=== PATIENT | male | born 1995 | race Caucasian/White ===

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

== ENCOUNTER 2017-03-23 15:25 | Emergency (ER) | payer MEDICAID ==
[~2017-03-23] VITALS: Ht 180.3 cm; Wt 68.4 kg
[~2017-03-23 15:25] MED LIST changes: -ALBU8.5H3 INH; +ALBU8.5H8 INH; -LAMO150T PO; +LAMO150T2 PO
[2017-03-23 17:37] LABS: MICROSCOPIC INDICATED
[2017-03-23 18:04] LABS: CULTURE INDICATED? NO
[2017-03-23] MEDS ORDERED: CEFTRIAXONE 250 MG ONE (18:26)
[2017-03-23] MEDS ORDERED: AZITHROMYCIN 500 MG TABLET ONE (18:26)
[2017-03-23] MEDS ORDERED: LIDOCAINE 1%, 10ML ONE (18:26)
[2017-03-23] MEDS ORDERED: AZITHROMYCIN 500 MG TABLET PO ONE (18:30)
[2017-03-23] MEDS ORDERED: CEFTRIAXONE 250 MG IM ONE (18:30)
[2017-03-23 19:08] VITALS: BP 122/61
== END 2017-03-23 19:18 | disposition home or self-care (01) ==
LOC: SUATTDRO 17:20 → ED 18:15
PROVIDERS: ATTEND Internal Medicine
DX: N34.1 Nonspecific urethritis (principal); J45.909 Unspecified asthma, uncomplicated
CPT/HCPCS: 81001; 87491; 87591; 96372; 99284; J0696

== ENCOUNTER 2018-02-05 15:33 | Emergency (ER) | payer MEDICAID ==
[~2018-02-05] VITALS: Ht 185.4 cm; Wt 76.0 kg
[2018-02-05 16:03] LABS: BASOPHILS # (AUTO) 0.03 x10^3/uL (0-0.3); BASOPHILS % (AUTO) 0 % (0-1); EOSINOPHILS # (AUTO) 0.12 x10^3/uL (0-0.8); EOSINOPHILS % (AUTO) 2 % (1-7); LYMPHOCYTES # (AUTO) 1.44 x10^3/uL (1-6.1); LYMPHOCYTES % (AUTO) 19 % (22-44); MD NO; MEAN CORPUSCULAR HEMOGLOBIN 28.6 pg (27.5-34.5); MEAN CORPUSCULAR HGB CONC 33.1 g/dL (33.2-36.2); MEAN CORPUSCULAR VOLUME 86.5 fL (81-97); MEAN PLATELET VOLUME 8.2 fL (7.4-10.4); MONOCYTES # (AUTO) 0.75 x10^3/uL (0-1.4); MONOCYTES % (AUTO) 10 % (2-9); NEUTROPHILS # (AUTO) 5.24 x10^3/uL (1.8-8.0); NEUTROPHILS % (AUTO) 69 % (42-75); PLATELET COUNT 240 x10^3/uL (130-400); RED BLOOD COUNT 5.21 x10^6/uL (4.38-5.82); RED CELL DISTRIBUTION WIDTH 13.6 % (9.4-14.8)
[2018-02-05 16:08] LABS: ALANINE AMINOTRANSFERASE 20 U/L (12-78); ALBUMIN 4.2 g/dL (3.4-5.0); ANION GAP 6 mmol/L (5-15); CALCIUM 9.3 mg/dL (8.5-10.1); CHLORIDE 102 mmol/L (98-107)
[2018-02-05 16:11] LABS: ALKALINE PHOSPHATASE 67 U/L (45-117); BILIRUBIN,TOTAL 0.5 mg/dL (0.2-1.0); CREATININE 0.89 mg/dL (0.7-1.3); TOTAL PROTEIN 7.8 g/dL (6.4-8.2)
[2018-02-05 16:13] VITALS: BP 130/76
== END 2018-02-05 16:44 | disposition home or self-care (01) ==
LOC: ED 16:38
DX: M62.81 Muscle weakness (generalized) (principal); F31.9 Bipolar disorder, unspecified; F90.9 Attention-deficit hyperactivity disorder, unspecified type; J45.909 Unspecified asthma, uncomplicated; R20.0 Anesthesia of skin; R51 Headache
CPT/HCPCS: 36415; 70450; 80053; 85025; 93005; 99285

== ENCOUNTER 2018-08-22 12:21 | Emergency (ER) | payer MEDICAID ==
[~2018-08-22] VITALS: Ht 182.9 cm; Wt 71.0 kg
[2018-08-22 12:33] VITALS: BP 106/82
--- NOTE | 2018-08-22 12:38 | NUR ---
BIB BY [facility] FOR RIGHT ANKLE SWELLING/PAIN D/T SKATEBOARD FALL AT 3AM ABLE TO BEAR WEIGHT/CMS INTACT
[2018-08-22] MEDS ORDERED: OXYcodone/APAP 5/325MG TABLET ONE (12:47)
--- NOTE | 2018-08-22 12:54 | NUR ---
MEDICATED PER EMAR FOR ANKLE PAIN AT 7/10 RLE ELEVATED ON PILLOWS/ 2 ICE PACKS APPLIED XRAY AT BEDSIDE
[2018-08-22] MEDS ORDERED: OXYcodone/APAP 5/325MG TABLET PO ONE (13:00)
--- NOTE | 2018-08-22 13:34 | NUR ---
CMS REMAINS INTACT PAIN MEDICATION EFFECTIVE ALREADY. PATIENT REPORTS PAIN TO 2/10 PROVIDER TO BEDSIDE TO EXPLAIN TESTING RESULTS-AWAITING STABILIZATION ORDERS
--- NOTE | 2018-08-22 13:40 | NUR ---
RLE SPLINTED- CMS INTACT POST APPLICATION PROVIDED TO TAXI VOUCHER AMBULATED W/ CRUTCHES W/ NO DIFFICULTY-SAFE TO DISCHARGE DESPITE RECENT NARCOTIC ADMIN
== END 2018-08-22 15:06 | disposition home or self-care (01) ==
LOC: ED 14:13
DX: S82.61XA Displaced fracture of lateral malleolus of right fibula, initial encounter for closed fracture (principal); J45.909 Unspecified asthma, uncomplicated; V00.138A Other skateboard accident, initial encounter; Y93.51 Activity, roller skating (inline) and skateboarding; Y92.410 Unspecified street and highway as the place of occurrence of the external cause; Y99.8 Other external cause status
CPT/HCPCS: 29515; 99283

== ENCOUNTER 2019-02-10 07:13 | Emergency (ER) | payer MEDICAID ==
[~2019-02-10] VITALS: Ht 182.9 cm; Wt 75.0 kg
--- NOTE | 2019-02-10 07:27 | NUR ---
BIB EMS C/O SOB WHILE WALKING HOME THIS MORNING. HX OF ASTHMA. 92% ON RA IMPROVED TO 99% AFTER 1 ALBUTEROL TREATMENT BRASS ROLLER. ER PA AT BEDSIDE, PT ASSESSMENT REVIEWED AND POC DISCUSSED. PT ON BP AND PULSE OX MONITORS. VSS, NADN. END EXP WHEEZES HEARD T/O POSTERIOR NAVIN ROBERTS. CALL LIGHT W/I REACH.
[2019-02-10] MEDS ORDERED: ALBUTEROL/IPRATROPIUM 2.5MG/0.5MG, 3 ML NPPB ONE (07:30)
[2019-02-10] MEDS ORDERED: ALBUTEROL/IPRATROPIUM 2.5MG/0.5MG, 3 ML ONE (07:36)
[2019-02-10 08:13] VITALS: BP 117/63
--- NOTE | 2019-02-10 09:01 | NUR ---
LATE ENTRY 0830 Patient/Caregiver given discharge instructions and they have confirmed that they understand the instructions. Patient ambulatory with steady gait.
== END 2019-02-10 09:02 | disposition home or self-care (01) ==
LOC: ED 07:54
DX: J45.31 Mild persistent asthma with (acute) exacerbation (principal); F31.9 Bipolar disorder, unspecified; F90.9 Attention-deficit hyperactivity disorder, unspecified type
CPT/HCPCS: 94640; 99283; J7512; J7620

== ENCOUNTER 2019-02-24 09:44 | Emergency (ER) | payer MEDICAID ==
[~2019-02-24] VITALS: Ht 182.9 cm; Wt 73.4 kg
[2019-02-24 09:49] VITALS: BP 116/61
--- NOTE | 2019-02-24 09:59 | NUR ---
PT HERE WITH C/O RIGHT LOWER WISDOM TOOTH PAIN. PT STATES IT IS "CRACKED AND THE DENTIST TOLD ME IT'S GOING TO BE 3 AND A HALF WEEKS AND I CANNOT WAIT THAT LONG." PT STATES HX ASTHMA AND TAKES INHALER DAILY.
--- NOTE | 2019-02-24 10:15 | NUR ---
Patient/Caregiver given discharge instructions and they have confirmed that they understand the instructions. Patient ambulatory with steady gait.
== END 2019-02-24 10:17 | disposition home or self-care (01) ==
LOC: ED 10:15
DX: K08.89 Other specified disorders of teeth and supporting structures (principal)
CPT/HCPCS: 99283

== ENCOUNTER 2019-07-25 12:13 | Emergency (ER) | payer MEDICAID ==
[~2019-07-25] VITALS: Ht 185.4 cm; Wt 71.2 kg
[~2019-07-25 12:13] MED LIST changes: -LAMO150T2 PO; +LAMO150T4 PO
[2019-07-25 12:17] VITALS: BP 137/73
--- NOTE | 2019-07-25 12:23 | NUR ---
TRIAGE NOTE: ICE PACK PLACED AND PT INSTRUCTED TO KEEP HAND ELEVATED
== END 2019-07-25 14:37 | disposition left against medical advice (07) ==
LOC: ED 14:26
DX: M25.531 Pain in right wrist (principal); Z53.21 Procedure and treatment not carried out due to patient leaving prior to being seen by health care provider